=== PATIENT | female | born 1980 | race Two or more races ===

== ENCOUNTER 2018-08-17 20:34 | Emergency (ER) | payer MEDICAID ==
[~2018-08-17] VITALS: Ht 154.9 cm; Wt 73.0 kg
[~2018-08-17 20:34] MED LIST: ACETAMINOPHEN-1 EAC1 ORAL; ALBUTEROL SULF8.5 GM INH; AMOX TR-K CLV1 EAC2 ORAL; CHLORHEXIDINE473 ML MM; COLACE100 MG ORAL; CORTISPORIN EAR10 ML RIGHT EAR; IBUPROFEN600 MG ORAL; NAPROSYN500 M1 ORAL; NKM; PREDNISONE20 MG ORAL; PROMETHAZINE-C118 M1 ORAL; VALIUM10 MG ORAL
[2018-08-17 21:07] VITALS: BP 121/79
[2018-08-17] MEDS ORDERED: IBUPROFEN600 MG ORAL (21:13)
--- NOTE | 2018-08-17 21:14 | Emergency Room Report ---
History of Present Illness General Chief Complaint: Multiple Trauma/Fall Source: Patient Present Illness HPI Is a 38-year-old female with no past medical history. She presents with chief complaint of head and neck injury and pain. Onset was 3 days ago. She was standing on top of a chair to get something. She fell backward hit the back of her head. No loss of consciousness. But she was dazed. Pain to the back of her head. Worse with movement. [place]rott dizzy and nauseous. No vomiting. Pain is 7 out of 10. Has not take anything for it. Denies any other trauma. Worse with movement. Better with rest. Allergies: Coded Allergies: No Known Allergies (Unverified , 10/16/15) Patient History Past Medical History: see triage record, old chart reviewed Past Surgical History: none Pertinent Family History: none Social History: Denies: smoking Last Menstrual Period: na Now: No Immunizations: other Reviewed Nursing Documentation: PMH: Agreed; PSxH: Agreed Nursing Documentation-PMH Past Medical History: No Stated History Hx Cardiac Problems: No - Anemia Review of Systems Eye: Denies: eye pain, blurred vision ENT: Denies: ear pain, nose congestion, throat swelling Respiratory: Denies: cough, shortness of breath Cardiovascular: Denies: chest pain, palpitations Gastrointestinal: Denies: abdominal pain, diarrhea, nausea, vomiting Musculoskeletal: Denies: back pain, joint pain Skin: Denies: rash Neurological: Reports: headache; Denies: numbness Endocrine: Denies: increased thirst, increased urine Hematologic/Lymphatic: Denies: easy bruising All Other Systems: negative except mentioned in HPI Physical Exam Vital Signs Date Time Temp Pulse Resp B/P (MAP) Pulse Ox O2 Delivery O2 Flow Rate FiO2 08/17/18 20:50 98.4 76 18 115/65 97 Room Air vitals normal Sp02 EP Interpretation: reviewed, normal General Appearance: well appearing, no apparent distress, alert Head: normocephalic, atraumatic Eyes: bilateral eye PERRL, bilateral eye EOMI ENT: hearing grossly normal, normal pharynx Neck: full range of motion, supple, no meningismus Respiratory: chest non-tender, lungs clear, normal breath sounds Cardiovascular #1: regular rate, rhythm, no murmur Gastrointestinal: normal bowel sounds, non tender, no mass, no organomegaly, no bruit, non-distended Musculoskeletal: back normal, gait/station normal, normal range of motion Psychiatric: mood/affect normal Skin: warm/dry Medical Decision Making Diagnostic Impression: Primary Impression: Head injury, acute Qualified Codes: S09.90XA - Unspecified injury of head, initial encounter Additional Impression: Concussion Qualified Codes: S06.0X0A - Concussion without loss of consciousness, initial encounter ER Course Patient presents with head injury. No evidence of any bleed. No evidence of fracture. CT/MRI/US Diagnostic Results CT/MRI/US Diagnostic Results : Imaging Test Ordered: CT had Impression negative per radiologist Last Vital Signs Date Time Temp Pulse Resp B/P (MAP) Pulse Ox O2 Delivery O2 Flow Rate FiO2 08/17/18 20:50 98.4 76 18 115/65 97 Room Air Status: improved Disposition: HOME, SELF-CARE Condition: Stable Scripts Ibuprofen* (MOTRIN*) 600 Mg Tablet 600 MG ORAL THREE TIMES A DAY, #30 TAB 0 Refills Prov: Davis Brasher MD 08/17/18 Additional Instructions: Follow-up with your doctor in 7 days. Return if symptom worsen. Davis Brasher MD Aug 17, 2018 21:13
[2018-08-17 21:50] VITALS: BP 118/75
--- NOTE | 2018-08-18 09:44 | Diagnostic Imaging Report ---
Indication: Trauma, head pain, status post fall, hit back of head with pain in the back of her head, and dizziness Technique: Continuous helical CT scanning of the head was performed without intravenous contrast material. Axial and coronal 5 mm sections were generated. Radiation dose was minimized using automated exposure control Dose: Total Dose Length Product - DLP 1354.[address] Dose Index - CTDIvol(s) 70.38 mGy. Comparison: none Findings: The ventricular system is normal in size and configuration. There is no shift of midline structures. No abnormal extra-axial fluid collections are noted. There is no evidence of intracerebral bleeding. No other abnormal high or low density areas are noted within the brain. Normal clemente-white differentiation. Visualized orbits and sinuses are unremarkable. The mastoids are clear. The calvarium is intact Impression: Normal CT scan of the head without contrast material. This agrees with the preliminary interpretation provided overnight by Dr. Wheatley The CT scanner at [facility] is accredited by the [employer] and the scans are performed using protocols designed to limit radiation exposure to as low as reasonably achievable to attain images of sufficient resolution adequate for diagnostic evaluation.
== END 2018-08-17 21:50 | disposition home or self-care (01) ==
LOC: EMR 21:36 → MERGE 21:36 → EMR 21:50
DX: S09.90XA Unspecified injury of head, initial encounter (principal); S06.0X0A Concussion without loss of consciousness, initial encounter; M54.2 Cervicalgia; R51 Headache; W17.89XA Other fall from one level to another, initial encounter; Y93.9 Activity, unspecified; Y92.9 Unspecified place or not applicable; Y99.9 Unspecified external cause status
CPT/HCPCS: 70450; 99283

== ENCOUNTER 2018-11-23 17:03 | Emergency (ER) | payer MEDICAID ==
[~2018-11-23] VITALS: Ht 154.9 cm; Wt 72.6 kg
[2018-11-23] MEDS ORDERED: NKM (17:18)
[2018-11-23 17:24] VITALS: BP 111/65
--- NOTE | 2018-11-23 17:24 | NUR ---
ED Nurse Note: Pt from home came in due to Right side abd. pain with N/V/D x 3 days. Last episode of vomiting today. Pt is AAO x4, ambulatory with non labored breathing. Noted pt is guarding her abdomen.
[2018-11-23] MEDS ORDERED: Morphine Sulfate 4mg/ml Inj (IV USE ONLY) IVP ONE (17:45)
[2018-11-23] MEDS ORDERED: Isovue-300 100ml vial INJ PRN (17:45)
--- NOTE | 2018-11-23 18:24 | NUR ---
ED Nurse Note: BLOOD SPECIMENS AND URINE SENT DOWN TO THE LAB.
[2018-11-23 18:38] LABS: APPEARANCE,URINE CLEAR; BILIRUBIN, URINE NEGATIVE (NEGATIVE); COLOR,URINE PALE YELLOW; GLUCOSE, URINE (UA) NEGATIVE (NEGATIVE); KETONES,URINE NEGATIVE (NEGATIVE); LEUKOCYTE ESTERASE ,URINE NEGATIVE (NEGATIVE); NITRITE,URINE NEGATIVE (NEGATIVE); PH,URINE 7 (4.5-8.0); PROTEIN,URINE NEGATIVE (NEGATIVE); UROBILINOGEN,URINE NORMAL MG/DL (0.0-1.0)
--- NOTE | 2018-11-23 18:41 | Emergency Room Report ---
History of Present Illness General Chief Complaint: Nausea, Vomiting, and Diarrhea Source: Patient Present Illness HPI 38-year-old female patient presents the ER complaining of vomiting and diarrhea and right lower quadrant pain for the past 3 days. Reports vomiting symptoms have resolved, states last time she throat was yesterday. Denies hematemesis. Denies blood in stool, reports watery diarrhea. Denies recent travel outside the country. Denies contacts with similar symptoms. Denies food new food in diet. Also complaining of right lower quadrant pain. Denies dysuria, hematuria. Denies vaginal discharge. Denies constipation. Denies other aggravating or relieving factors. Reports able to pass flatus. Allergies: Coded Allergies: No Known Allergies (Unverified , 11/23/18) Patient History Past Medical History: see triage record Last Menstrual Period: 2 YEARS AGO Now: No Reviewed Nursing Documentation: PMH: Agreed; PSxH: Agreed Nursing Documentation-PMH Past Medical History: No Stated History Review of Systems All Other Systems: negative except mentioned in HPI Physical Exam Vital Signs Date Time Temp Pulse Resp B/P (MAP) Pulse Ox O2 Delivery O2 Flow Rate FiO2 11/23/18 17:14 97.5 62 16 111/65 97 Room Air Sp02 EP Interpretation: reviewed, normal General Appearance: well appearing, no apparent distress, alert, GCS 15, non- toxic Head: normocephalic, atraumatic Eyes: bilateral eye normal inspection, bilateral eye PERRL ENT: hearing grossly normal, normal pharynx, no angioedema, normal voice, uvula midline, moist mucus membranes Neck: full range of motion Respiratory: lungs clear, normal breath sounds, no rhonchi, no respiratory distress, no accessory muscle use, no wheezing, speaking full sentences Cardiovascular #1: regular rate, rhythm, no edema, normal capillary refill Cardiovascular #2: 2+ radial (R), 2+ radial (L) Gastrointestinal: soft, no mass, non-distended, no guarding, no rebound, tenderness - Right lower quadrant, other - Positive obturator, negative Hill Genitourinary: no CVA tenderness Musculoskeletal: back normal, digits/nails normal, gait/station normal, normal range of motion, non-tender Neurologic: alert, oriented x3, responsive, motor strength/tone normal, sensory intact Psychiatric: mood/affect normal Skin: no rash, normal turgor Medical Decision Making PA Attestation Dr. Mix is my supervising Physician whom patient management has been discussed with. Diagnostic Impression: Primary Impression: Nausea, vomiting, and diarrhea Additional Impressions: Umbilical hernia Adnexal cyst Abdominal pain ER Course Pt. presents to the ED c/o abdominal pain and vomiting. Ddx considered but are not limited to UTI, cholelithiasis, cholecystitis, pancreatitis, appendicitis, diverticulitis, gastritis, enteritis, food poisoning, torsion. Begin abdominal pain workup. Provided patient with pain medication. Vital signs: are WNL, pt. is afebrile ORDERS: CBC, CMP, Lipase, UA, CT abdomen pelvis, Zofran, and medication. ER COURSE: Provided with pain medication. CBC and CMP unremarkable, no elevation in WBCs or LFTs Lipase WNL UA unremarkable, negative nitrites, patient asx, low suspicion for UTI, does not require abx at this time. Urine negative Discuss results with patient CT abdomen and pelvis shows adnexal cyst, no appendicitis, umbilical hernia. Discuss results with the patient. Provided patient with copy of results. Instructed patient to followup with PCP and discuss results of report with patient, discuss need for further treatment and referral. Patient reports pain symptoms improve on the ER. ER precautions given. No fever, no blood in stool, no recent travel or hospitalizations, does not require abx treatment at this time. No signs of dehydration, moist mucus membranes, cap refill <2seconds, normal skin turgor. H&H normal. Patient instructed on BRAT diet. Patient instructed to remain hydrated, drink plenty of fluids. Patient questions asked and answered. Patient states understanding and agreement to treatment plan. ER precautions given, return to ER for new or worsening of symptoms. DISCHARGE: Rx provided for Tylenol At this time pt. is stable for d/c to home. Patient resting comfortably, in no acute distress, nontoxic appearing, talking without difficulty. Rx provided to patient. Patient to take medications as instructed Will provide with patient care instructions and any necessary prescriptions. Care plan and follow-up instructions provided. Patient instructed to follow-up with primary care provider in 3 - 5 days. Patient questions asked and answered. Patient reports understanding and agreement to treatment plan. ER precautions given. Patient instructed to return to ER immediately for any new or worsening of symptoms including but not limited to increasing SOB, persistent fever, worsening of pain symptoms, intractable vomiting, blood in stool, urine, and/or emesis. - Please note that this Emergency Department Report was dictated using [employer]organic extractions technician technology software, occasionally this can lead to erroneous entry secondary to interpretation by the dictation equipment. Labs Test 11/23/18 17:45 White Blood Count 7.5 K/UL (4.8-10.8) Red Blood Count 4.55 M/UL (4.20-5.40) Hemoglobin 14.0 G/DL (12.0-16.0) Hematocrit 42.0 % (37.0-47.0) Mean Corpuscular Volume 92 FL (80-99) Mean Corpuscular Hemoglobin 30.9 PG (27.0-31.0) Mean Corpuscular Hemoglobin Concent 33.4 G/DL (32.0-36.0) Red Cell Distribution Width 13.2 % (11.6-14.8) Platelet Count 194 K/UL (150-450) Mean Platelet Volume 12.2 FL (6.5-10.1) Neutrophils (%) (Auto) 60.8 % (45.0-75.0) Lymphocytes (%) (Auto) 28.3 % (20.0-45.0) Monocytes (%) (Auto) 8.4 % (1.0-10.0) Eosinophils (%) (Auto) 1.5 % (0.0-3.0) Basophils (%) (Auto) 1.0 % (0.0-2.0) Urine Color Pale yellow Urine Appearance Clear Urine pH 7 (4.5-8.0) Urine Specific [place] 1.010 (1.005-1.035) Urine Protein Negative (NEGATIVE) Urine Glucose (UA) Negative (NEGATIVE) Urine Ketones Negative (NEGATIVE) Urine Blood 1+ (NEGATIVE) Urine Nitrite Negative (NEGATIVE) Urine Bilirubin Negative (NEGATIVE) Urine Urobilinogen Normal MG/DL (0.0-1.0) Urine Leukocyte Esterase Negative (NEGATIVE) Urine RBC 2-4 /HPF (0 - 2) Urine WBC 0-2 /HPF (0 - 2) Urine Squamous Epithelial Cells Few /LPF (NONE/OCC) Urine Bacteria Few /HPF (NONE) Urine HCG, Qualitative Negative (NEGATIVE) Sodium Level 138 MMOL/L (136-145) Potassium Level 3.8 MMOL/L (3.5-5.1) Chloride Level 103 MMOL/L (98-107) Carbon Dioxide Level 26 MMOL/L (21-32) Anion Gap 9 mmol/L (5-15) Blood Urea Nitrogen 10 mg/dL (7-18) Creatinine 0.7 MG/DL (0.55-1.30) Estimat Glomerular Filtration Rate > 60 mL/min (>60) Glucose Level 94 MG/DL (74-106) Calcium Level 9.8 MG/DL (8.5-10.1) Total Bilirubin 0.4 MG/DL (0.2-1.0) Aspartate Amino Transf (AST/SGOT) 19 U/L (15-37) Alanine Aminotransferase (ALT/SGPT) 43 U/L (12-78) Alkaline Phosphatase 69 U/L (46-116) Total Protein 7.8 G/DL (6.4-8.2) Albumin 4.1 G/DL (3.4-5.0) Globulin 3.7 g/dL Albumin/Globulin Ratio 1.1 (1.0-2.7) Lipase 184 U/L (73-393) Human Chorionic Gonadotropin, Quant < 1 mIU/mL (1-6) CT/MRI/US Diagnostic Results CT/MRI/US Diagnostic Results : Imaging Test Ordered: CT abdomen pelvis with contrast Impression 2.5 cm crenated right adnexal cyst and trace pelvic free fluid are nonspecific findings that can be seen in the setting of physiologic follicle rupture. Bowel is nondilated. No free air, diverticulitis, or appendicitis. Tiny fat-containing periumbilical hernia. Liver is upper limits of normal in size. Spleen, pancreas, gallbladder, and kidneys are unremarkable. Last Vital Signs Date Time Temp Pulse Resp B/P (MAP) Pulse Ox O2 Delivery O2 Flow Rate FiO2 11/23/18 17:24 97.5 16 111/65 97 Room Air 11/23/18 17:14 62 Status: improved Disposition: HOME, SELF-CARE Condition: Stable Scripts Acetaminophen* (TYLENOL EXTRA STRENGTH*) 500 Mg Tablet 500 MG ORAL Q8H PRN for Prn Headache/Temp > 101, #30 TAB 0 Refills Prov: Paul Bronson 11/23/18 Referrals: NOT CHOSEN IPA/MD,REFERRING (PCP) Patient Instructions: Abdominal Pain, Adult, [id number], Diarrhea, Adult, [id number], Nausea and Vomiting, Adult, [id number], Ovarian Cyst, Easy-to- Read Additional Instructions: Follow-up with [facility] specialist to discuss adnexal cyst. Follow-up general surgeon to discuss periumbilical hernia. Followup with primary care provider in 3 -5 days. Avoid spicy foods, avoid dairy foods. BRAT diet: bananas, rice, apple sauce, toast. Consider Immodium for diarrhea and Tylenol for pain symptoms. Take medications as directed. Patient questions asked and answered. ER precautions given, patient instructed to return to ER immediately for any new or worsening of symptoms. Paul Bronson Nov 23, 2018 18:41
[2018-11-23 18:48] LABS: EOSINOPHILS % (AUTO) 1.5 % (0.0-3.0); LYMPHOCYTES % (AUTO) 28.3 % (20.0-45.0); MEAN CORPUSCULAR VOLUME 92 FL (80-99); MONOCYTES % (AUTO) 8.4 % (1.0-10.0); NEUTROPHILS % (AUTO) 60.8 % (45.0-75.0); PLATELET COUNT 194 K/UL (150-450); RED BLOOD COUNT 4.55 M/UL (4.20-5.40); RED CELL DISTRIBUTION WIDTH 13.2 % (11.6-14.8); WHITE BLOOD COUNT 7.5 K/UL (4.8-10.8)
[2018-11-23 18:49] LABS: ANION GAP 9 mmol/L (5-15); BLOOD UREA NITROGEN 10 mg/dL (7-18); CALCIUM 9.8 MG/DL (8.5-10.1); CARBON DIOXIDE 26 MMOL/L (21-32); CHLORIDE 103 MMOL/L (98-107); CREATININE 0.7 MG/DL (0.55-1.30); POTASSIUM 3.8 MMOL/L (3.5-5.1); SODIUM 138 MMOL/L (136-145)
[2018-11-23 18:55] LABS: ALANINE AMINOTRANSFERASE 43 U/L (12-78); ALBUMIN 4.1 G/DL (3.4-5.0); ALBUMIN/GLOBULIN RATIO 1.1 (1.0-2.7); ALKALINE PHOSPHATASE 69 U/L (46-116); ASPARTATE AMINO TRANSFERASE 19 U/L (15-37); BILIRUBIN,TOTAL 0.4 MG/DL (0.2-1.0)
--- NOTE | 2018-11-23 18:58 | NUR ---
ED Nurse Note: Notified CT of order. Waiting for arrival.
--- NOTE | 2018-11-23 19:15 | NUR ---
HAND-OFF: Report given to DANAY Soler.
--- NOTE | 2018-11-23 19:15 | NUR ---
ED Nurse Note: Received report from Finesse/DANAY. Pt is A/O X 4. VSS. will continue to monitor.
[2018-11-23] MEDS ORDERED: TYLENOL EXTRA500 MG ORAL (20:40)
--- NOTE | 2018-11-23 20:53 | NUR ---
ER DISCHARGE NOTE: Patient is cleared to be discharged per ERMD, pt is aox4, on room air, with stable vital signs. pt was given dc and prescription instructions, pt was able to verbalize understanding, pt id band and iv site removed without complications. pt is able to ambulate with steady gait. pt took all belongings.
[2018-11-23 21:05] VITALS: BP 115/65
--- NOTE | 2018-11-24 08:53 | Diagnostic Imaging Report ---
Clinical Indication: Abdominal pain Technique: No oral contrast utilized, per emergency room physician request IV administration nonionic contrast. Venous phase spiral acquisition obtained through the abdomen and pelvis. Multiplanar reconstructions were generated. Total dose length product 854.94 mGycm. CTDIvol(s) 16.14 mGy. Dose reduction achieved using automated exposure control Comparison: none Findings: The appendix is normal. No evidence of diverticulosis or diverticulitis. No small bowel distention. No free or loculated intraperitoneal gas. There is equivocal trace fluid within the pelvis.. The distal esophagus, stomach, duodenum are unremarkable. The liver, gallbladder, bile ducts, pancreas, spleen, adrenals, kidneys are unremarkable. No renal or ureteral calculi, hydronephrosis, or hydroureter. No pelvic mass or adenopathy. The uterus is not visualized, presumed surgically absent. 2.4 cm cyst, presumably a dominant follicle, is seen in the right ovary, appears slightly collapsed. The included lung bases demonstrate posterior dependent atelectatic changes. The bones demonstrate bilateral L5 spondylolysis. No evidence of spondylolisthesis.. Impression: Partially collapsed right ovarian follicle, presumably physiologic Otherwise essentially unremarkable exam. No acute abnormality Incidental finding of bilateral L5 spondylolysis, without evidence of associated spondylolisthesis Other incidental findings as noted This agrees with the preliminary interpretation provided overnight by [facility] teleradiology service, with minor variation. The CT scanner at [facility] is accredited by the [employer] and the scans are performed using protocols designed to limit radiation exposure to as low as reasonably achievable to attain images of sufficient resolution adequate for diagnostic evaluation.
== END 2018-11-23 20:53 | disposition home or self-care (01) ==
LOC: EMR 17:47
DX: R11.2 Nausea with vomiting, unspecified (principal); R19.7 Diarrhea, unspecified; K42.9 Umbilical hernia without obstruction or gangrene; N83.201 Unspecified ovarian cyst, right side; R10.9 Unspecified abdominal pain
CPT/HCPCS: 36415; 74177; 80053; 81003; 81025; 83690; 84702; 85025; 96361; 96374; 96375; 99284; J2270; J2405; Q9967

== ENCOUNTER 2019-05-24 16:46 | Emergency (ER) | payer MEDICAID ==
[~2019-05-24] VITALS: Ht 154.9 cm; Wt 71.2 kg
[~2019-05-24 16:46] MED LIST changes: +NEXAFED30 MG ORAL; +TYLENOL EXTRA500 MG ORAL; +ZITHROMAX250 MG ORAL
[2019-05-24 16:53] VITALS: BP 116/68
[2019-05-24] MEDS ORDERED: BENADRYL ALLERG25 M1 PO (17:15)
[2019-05-24] MEDS ORDERED: CEPHALEXIN500 MG ORAL (17:15)
[2019-05-24] MEDS ORDERED: BENADRYL CRE1 APPLIC TOPIC (17:15)
--- NOTE | 2019-05-24 17:15 | Emergency Room Report ---
History of Present Illness General Chief Complaint: Skin Rash/Abscess Source: Patient Present Illness HPI 38-year-old female presents to the emergency department complaining of erythema , swelling, warmth and extreme itchiness to localized area of the lateral aspect of the left calf since yesterday. She denies pain other than when she first felt the bite. Patient reports acute onset after she was out running she felt a small pinch on her calf which later began itching later yesterday evening. Pt. reports itching to be severe. Patient reports erythema has been progressive. She reports that she is up-to-date with her tetanus vaccination she denies bleeding or bruising. Denies chest pain or shortness of breath. Pt. denies fevers, chills or swollen tender lymph nodes. Denies lesions/rashes elsewhere on the body. Denies new medications or body washes or creams. Denies swelling of the lips, tongue , throat or airway. Denies wheezing, or shortness of breath. Denies recent travel, recent illness or ill contacts. denies blisters, oral lesions, or sloughing of the skin. Allergies: Coded Allergies: No Known Allergies (Unverified , 11/23/18) Patient History Past Medical History: see triage record Past Surgical History: none Pertinent Family History: none Last Menstrual Period: Hysterectomy Now: No Immunizations: UTD Reviewed Nursing Documentation: PMH: Agreed; PSxH: Agreed Nursing Documentation-PMH Past Medical History: No History, Except For Review of Systems All Other Systems: negative except mentioned in HPI Physical Exam Vital Signs Date Time Temp Pulse Resp B/P (MAP) Pulse Ox O2 Delivery O2 Flow Rate FiO2 05/24/19 16:53 98.4 57 20 116/68 (84) 97 Room Air Sp02 EP Interpretation: reviewed, normal General Appearance: no apparent distress, alert, GCS 15, non-toxic Head: normocephalic, atraumatic Eyes: bilateral eye normal inspection, bilateral eye PERRL ENT: hearing grossly normal, no angioedema, normal voice Neck: full range of motion, other - no stridor Respiratory: chest non-tender, lungs clear, normal breath sounds, no wheezing, speaking full sentences Cardiovascular #1: regular rate, rhythm, no edema Musculoskeletal: back normal, gait/station normal, normal range of motion, non- tender Neurologic: alert, oriented x3, responsive, motor strength/tone normal, sensory intact, normal gait, speech normal, grossly normal Psychiatric: judgement/insight normal Skin: other - 0.5cm erythematous indurated lesion with 6cm of surrounding erythema, no central clearing, no blisters or vesicles. palpable warmth. Lymphatic: no adenopathy Medical Decision Making PA Attestation Dr. Melgoza Is my supervising Physician whom patient management has been discussed with. Diagnostic Impression: Primary Impression: Insect bite of leg, infected Qualified Codes: S80.862A - Insect bite (nonvenomous), left lower leg, initial encounter; L08.9 - Local infection of the skin and subcutaneous tissue, unspecified; W57.XXXA - Bitten or stung by nonvenomous insect and other nonvenomous arthropods, initial encounter ER Course 38-year-old female presents to the emergency department complaining of erythema , swelling, warmth and extreme itchiness to localized area of the lateral aspect of the left calf since yesterday. She denies pain other than when she first felt the bite. Patient reports acute onset after she was out running she felt a small pinch on her calf which later began itching later yesterday evening. Pt. reports itching to be severe. Patient reports erythema has been progressive. She reports that she is up-to-date with her tetanus vaccination she denies bleeding or bruising. Denies chest pain or shortness of breath. Pt. denies fevers, chills or swollen tender lymph nodes. Denies lesions/rashes elsewhere on the body. Denies new medications or body washes or creams. Denies swelling of the lips, tongue , throat or airway. Denies wheezing, or shortness of breath. Denies recent travel, recent illness or ill contacts. denies blisters, oral lesions, or sloughing of the skin. Ddx considered but are not limited to cellulitis, scabies, insect bites, tic bites, spider bites, contact dermatitis, Drug reaction, allergic reaction, fungal infection, lice. Vital signs: are WNL, pt. is afebrile H&PE are most consistent with Infected insect bite of the left lateral calf. ORDERS: none required at this time, the diagnosis is clinical ED INTERVENTIONS: None required at this time. DISCHARGE: At this time pt. is stable for d/c to home. Will provide printed patient care instructions, and any necessary prescriptions. Care plan and follow up instructions have been discussed with the patient prior to discharge. Last Vital Signs Date Time Temp Pulse Resp B/P (MAP) Pulse Ox O2 Delivery O2 Flow Rate FiO2 05/24/19 16:53 98.4 57 20 116/68 (84) 97 Room Air Disposition: HOME, SELF-CARE Condition: Stable Patient Instructions: Cellulitis, [id number]-[id number], Insect Bite, [id number] Additional Instructions: Take medications as directed. Follow up with a Primary Care Provider in 3-5 days, even if your symptoms have resolved. --Please review list of primary care clinics, if you do not already have a primary care provider Return sooner to ED if new symptoms occur, or current symptoms become worse. Do not drink alcohol, drive, or operate heavy machinery while taking Benadryl as this may cause drowsiness. - Please note that this Emergency Department Report was dictated using [employer] locomotive engineer technology software, occasionally this can lead to erroneous entry secondary to interpretation by the dictation equipment. Alejandra Toro May 24, 2019 17:14
[2019-05-24 17:30] VITALS: BP 116/68
== END 2019-05-24 17:30 | disposition home or self-care (01) ==
LOC: EMR 17:09
DX: S80.862A Insect bite (nonvenomous), left lower leg, initial encounter (principal); L08.9 Local infection of the skin and subcutaneous tissue, unspecified; Z90.710 Acquired absence of both cervix and uterus; W57.XXXA Bitten or stung by nonvenomous insect and other nonvenomous arthropods, initial encounter; Y93.02 Activity, running; Y92.9 Unspecified place or not applicable
CPT/HCPCS: 99282